=== PATIENT | male | born 1945 ===

== ENCOUNTER 2021-10-24 12:37 | Emergency (ER) | payer MEDICARE ==
[2021-10-24] MEDS ORDERED: Adacel Vial IM ONE (13:23)
--- NOTE | 2021-10-24 13:28 | ERPHSYRPT ---
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 pt denies any other injury at this time. Triage Nursing Assessment: pt is aox3, afebrile, pupils perrl, resps easy and non labored, radial pulses strong and equal, cap refill < 3 seconds, pt skin pink warm dry. approx 1 cm laceration noted to the dorsal left hand. wound is well approximated, sensation ROM intact. Physician History: 76 yo right hand dominant is here with laceration left hand dorsum between thumb and index after pull start service trainer kicked back at him. was bleeding initially but better with pressure. no numbness/weakness of tips. no difficult movemnst at digits/wrist. mild to moderate pain with palpation and better with being still. Timing/Duration: today, sudden Quality: painful Severity: mild Location: hands Possible Causes: other Allergies/Adverse Reactions: No Known Drug Allergies Allergy (Unverified 10/24/21 12:56) Hx Tetanus, Diphtheria Vaccination/Date Given: Yes Hx Influenza Vaccination/Date Given: No Hx Pneumococcal Vaccination/Date Given: No Immunizations Up to Date: Yes Travel Risk - International Travel Have you traveled outside of the country in past 3 weeks: No - Coronavirus Screening Are you exhibiting any of the following symptoms?: No Close contact with a COVID-19 positive Pt in past 14-21 Days: No - Vaccine Status Have you recieved a Covid-19 vaccination: Yes Guest Services Manager: [place] - Review of Systems Constitutional: No Symptoms Eyes: No Symptoms Respiratory: No Symptoms Cardiac: No Symptoms Abdominal/Gastrointestinal: No Symptoms Genitourinary Symptoms: No Symptoms Musculoskeletal: Injury Skin: Skin Lesions Neurological: No Symptoms Endocrine: No Symptoms Hematologic/Lymphatic: No Symptoms - Past Medical History Pertinent Past Medical History: Yes Cardiac History: Hypertension Other Medical History: macular degeneration - Past Surgical History Past Surgical History: Yes Other Surgical History: eye surgery. left arm surgery - Social History Smoking Status: Never smoker Drug Use: none Patient Lives Alone: No - Nursing Vital Signs Nursing Vital Signs: Initial Vital Signs Pulse Rate 69 10/24/21 12:44 Respiratory Rate 20 10/24/21 12:44 Blood Pressure 146/83 10/24/21 12:44 O2 Sat by Pulse Oximetry 97 10/24/21 12:44 Pain Scale Pain Intensity 0 - Physical Exam General Appearance: no apparent distress, alert Eye Exam: PERRL/EOMI Ears, Nose, Throat Exam: normal ENT inspection Neck Exam: normal inspection, full range of motion Respiratory Exam: normal breath sounds, lungs clear Cardiovascular Exam: regular rate/rhythm, normal heart sounds Extremity Exam: normal range of motion, pelvis stable, other (2cm laceration left hand dorsum ist proximal to webspace, skin flap in middle . slow ooze. intact ROM al all disits and cap refill < 3 sec.) Neurologic Exam: alert, oriented x 3, cooperative Skin Exam: normal color SpO2 Interpretation: normal SpO2: 97 O2 Delivery: Room Air Procedures - Laceration/Wound Repair Left Dorsal Hand Time of Procedure: 13:08 Wound Location: Left Wound Length (cm): 2 Wound's Depth, Shape: into muscle, irregular, flap Wound Explored: clean Irrigated: Yes Hibiclens Prep: Yes Anesthesia: 1% Lidocaine Volume Anesthetic (ccs): 4 Wound Debrided: moderate Wound Repaired With: sutures Suture Size/Type: 4-0, nylon Number of Sutures: 4 Layer Closure?: No Sterile Dressing Applied?: Yes - Progress Progress: improved Progress Note: 10/24/21 laceration repaired.no bony tenderness and intact ROM , No need for imaging. pat ient got vasovagal with few second syncope , observed and remain asymptomatic , stable for dc Counseled pt/family regarding: diagnosis, need for follow-up - Departure Departure Disposition: Home Clinical Impression: Hand laceration Condition: Stable Critical Care Time: No Referrals: MARYANN CRAWLEY DO [Primary Care Provider] - Follow up/PCP as directed (2 days for re evaluation) Instructions: Laceration Repair With Stitches (DC) Additional Instructions: take tylenol/ibuprofen as needed. follo wsigns for infection and return if having increased ain/redness/discharge/fever etc. suture removal in 10-14 days. no exertional work with left hand
[2021-10-24] MEDS ORDERED: XYLOCAINE 1% HCL 20 ML MDV IJ ONE (13:29)
[2021-10-24 13:39] VITALS: BP 144/85; PULSE 60; O2SAT 96
[2021-10-25] MEDS ORDERED: BACIGUENT 30 GM TP SCH (10:00)
== END 2021-10-24 13:43 | disposition home or self-care (01) ==
LOC: ED 12:37
DX: S61.412A Laceration without foreign body of left hand, initial encounter (principal); W31.89XA Contact with other specified machinery, initial encounter; Y93.H2 Activity, gardening and landscaping; Y92.007 Garden or yard of unspecified non-institutional (private) residence as the place of occurrence of the external cause; M79.642 Pain in left hand; I10 Essential (primary) hypertension; R55 Syncope and collapse
CPT/HCPCS: 12001; 96372; 99283